=== PATIENT | male | born 1985 | race Two or more races ===

== ENCOUNTER 2022-03-18 03:40 | Emergency (ER) | payer SELFPAY ==
[~2022-03-18] VITALS: Ht 185.4 cm; Wt 70.3 kg
[2022-03-18] MEDS ORDERED: LORAZEPAM 0.5 MG TABLET ONE (03:50)
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
[2022-03-18] MEDS ORDERED: LORAZEPAM 0.5 MG TABLET PO ONE (04:00)
--- NOTE | 2022-03-18 05:45 | NUR ---
PT DENIES ANXIETY AT THIS TIME.
--- NOTE | 2022-03-18 06:46 | NUR ---
Patient discharged to home in stable condition. Written and verbal after care instructions given. Patient verbalizes understanding of instruction. PT ambulatory with a steady gait
[2022-03-18 06:47] VITALS: BP 122/78
== END 2022-03-18 06:47 | disposition home or self-care (01) ==
LOC: ER 03:41
DX: F41.9 Anxiety disorder, unspecified (principal)

== ENCOUNTER 2022-07-02 22:48 | Emergency (ER) | payer SELFPAY ==
[~2022-07-02] VITALS: Ht 188 cm; Wt 86.2 kg
[2022-07-02 23:30] VITALS: BP 134/70
[2022-07-02] MEDS ORDERED: IBUPROFEN 400 MG TABLET ONE (23:57)
[2022-07-03] MEDS ORDERED: IBUPROFEN 400 MG TABLET PO ONE
== END 2022-07-03 01:25 | disposition home or self-care (01) ==
LOC: ER 22:57
DX: S99.921A Unspecified injury of right foot, initial encounter (principal); W05.1XXA Fall from non-moving nonmotorized scooter, initial encounter; Y93.89 Activity, other specified; Y92.89 Other specified places as the place of occurrence of the external cause; Y99.8 Other external cause status
CPT/HCPCS: 73660-TC

== ENCOUNTER 2022-09-08 18:41 | Emergency (ER) | payer SELFPAY ==
[~2022-09-08] VITALS: Ht 188 cm; Wt 86.2 kg
[2022-09-08] MEDS ORDERED: IBUPROFEN 600 MG TABLET PO ONE (19:00)
[2022-09-08] MEDS ORDERED: ACETAMINOPHEN ES 500 MG TABLET PO ONE (19:00)
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
--- NOTE | 2022-09-08 19:07 | NUR ---
X-RAY TECH AT BEDSIDE
[2022-09-08] MEDS ORDERED: IBUPROFEN 600 MG TABLET ONE (19:09)
[2022-09-08] MEDS ORDERED: ACETAMINOPHEN ES 500 MG TABLET ONE (19:09)
--- NOTE | 2022-09-08 20:25 | NUR ---
Patient discharged to home in stable condition. Written and verbal after care instructions given. Patient verbalizes understanding of instruction.
[2022-09-08 20:34] VITALS: BP 125/80
== END 2022-09-08 20:25 | disposition home or self-care (01) ==
LOC: ER 18:46
DX: S40.011A Contusion of right shoulder, initial encounter (principal); S90.31XA Contusion of right foot, initial encounter; V03.99XA Pedestrian with other conveyance injured in collision with car, pick-up truck or van, unspecified whether traffic or nontraffic accident, initial encounter; Y93.89 Activity, other specified; Y92.89 Other specified places as the place of occurrence of the external cause; Y99.8 Other external cause status
CPT/HCPCS: 71045-TC; 73030-TC; 73630-TC

== ENCOUNTER 2025-05-01 09:47 | Emergency (ER) | payer MEDICAID ==
[~2025-05-01] VITALS: Ht 188 cm; Wt 79.8 kg
[2025-05-01] MEDS ORDERED: KETOROLAC TROMETHAMINE 15 MG/ML VIAL ONE ×2 (10:28→10:29)
[2025-05-01 10:41] LABS: PLATELET COUNT (AUTO) 187 K/uL (150-450); RED BLOOD CELL COUNT(AUTO) 5.60 MIL/uL (4.5-6.0); RED CELL DISTRIBUTION WIDTH 14.2 % (11.5-15.0); WHITE BLOOD COUNT (AUTO) 5.1 K/uL (4.3-11.0)
[2025-05-01] MEDS: IV NS 0.9% 500 ML BAG IV ONE (10:42)
[2025-05-01] MEDS: KETOROLAC TROMETHAMINE 15 MG/ML VIAL IV ONE (10:42)
[2025-05-01 10:48] LABS: CALCIUM, SERUM 9.6 mg/dL (8.5-10.1); CREATININE 1.1 mg/dL (0.6-1.3); SODIUM SERUM 135.0 mmol/L (136-145); UREA NITROGEN, BLOOD 17.0 mg/dL (7-18)
[2025-05-01 10:53] LABS: ASPARTATE AMINOTRANSFERASE 26.0 U/L (15-37); TOTAL PROTEIN, SERUM 7.7 g/dL (6.4-8.2)
[2025-05-01 11:36] LABS: APPEARANCE,URINE CLEAR (CLEAR); BLOOD, URINE Negative Ery/uL (NEGATIVE); LEUKOCYTE ESTERASE ,URINE Negative (NEGATIVE); UGLUCOSE Negative (NEGATIVE)
[2025-05-01 11:41] LABS: NITRITE, URINE NEGATIVE (NEGATIVE)
[2025-05-01] MEDS ORDERED: NAPR-1164 PO (12:45)
[2025-05-01 13:10] VITALS: BP 122/93; TEMP 98; O2SAT 99
== END 2025-05-01 13:11 | disposition home or self-care (01) ==
LOC: ER 09:50
DX: M54.50 Low back pain, unspecified (principal)
CPT/HCPCS: 99285; 74176; 96374; 96361; 85025; 80048; 83690; 80076; 81003; 36415; J1885; J7040